=== PATIENT | male | born 1980 | race Hispanic/Latino ===

== ENCOUNTER 2017-01-25 20:03 | Emergency (ER) | payer SELFPAY ==
[2017-01-25] MEDS ORDERED: Ketorolac Tromethamine 30 MG/ML VIAL ONE (22:18)
[2017-01-25] MEDS ORDERED: HYDROcodone/Acetaminophen 10/325 mg Tablet ONE (22:18)
[2017-01-25 22:19] LABS: #Lymphocytes 1.8 thou/uL (1.20-3.40); #Monocytes 0.3 thou/uL (0.11-0.59); #Neutrophils 4.5 thou/uL (1.40-6.50); %Basophils 0.4 % (0.0-1.0); %Eosinophils 0.7 % (0.0-10.0); %Lymphocytes 26.9 % (21.0-51.0); %Monocytes 4.6 % (0.0-10.0); Hematocrit 42.6 % (42.0-52.0); Mean Platelet Volume 6.4 fL (7.4-10.4); Red Blood Cell (RBC) Count 4.67 mill/uL (4.70-6.10); White Blood Cell (WBC) Count 6.6 thou/uL (4.8-10.8)
[2017-01-25 22:40] LABS: ALT (SGPT) 17 U/L (8-55); AST (SGOT) 22 U/L (5-34); Alkaline Phosphatase 62 U/L (40-150); Anion Gap 14 mmol/L (10-20); BUN (Urea Nitrogen) 14 mg/dL (8.9-20.6); Bilirubin, Total 0.6 mg/dL (0.2-1.2); Calc. Creatinine Clearance 0 mL/min (70-130); Calcium 9.7 mg/dL (7.8-10.44); Carbon Dioxide 22 mmol/L (22-29); Chloride 105 mmol/L (98-107); Estimated GFR-MDRD Greater than 90; Globulin 3.2 g/dL (2.4-3.5); Lipase 44 U/L (8-78); Protein, Total 7.7 g/dL (6.0-8.3)
[2017-01-25 22:44] LABS: Troponin I Less than 0.010 ng/mL (< 0.028)
--- NOTE | 2017-01-25 23:04 | RAD ---
AP CHEST: Indication: Headache, chest pain. Comparison: None. FINDINGS: The lungs are clear. Cardiomediastinal silhouette is normal. No acute osseous abnormality is evident . IMPRESSION: No acute cardiopulmonary abnormality. POS: [facility]
--- NOTE | 2017-01-25 23:10 | CT ---
CT BRAIN WITHOUT CONTRAST: Indication: Headache. Comparison: None. FINDINGS: No acute infarct, hemorrhage or hydrocephalus is present. Septum pellucidum and third ventricle are midline. Skull and extracranial soft tissues appear within normal limits. IMPRESSION: No acute intracranial abnormality. POS: [facility]
== END 2017-01-25 23:26 | disposition home or self-care (01) ==
LOC: ERS 20:03
DX: R07.89 Other chest pain (principal); R51 Headache; F41.9 Anxiety disorder, unspecified; F32.9 Major depressive disorder, single episode, unspecified
CPT/HCPCS: 36415; 70450; 71010; 80053; 82553; 83690; 84484; 85025; 93005; 96372; J1885

== ENCOUNTER 2017-10-09 09:50 | Emergency (ER) | payer OTHER, SELFPAY ==
[2017-10-09] MEDS ORDERED: Pantoprazole 40 MG VIAL ONE (10:32)
[2017-10-09 10:42] LABS: #Lymphocytes 2.2 thou/uL (1.20-3.40); #Monocytes 0.3 thou/uL (0.11-0.59); #Neutrophils 6.5 thou/uL (1.40-6.50); %Basophils 0.2 % (0.0-1.0); %Eosinophils 0.2 % (0.0-10.0); %Lymphocytes 24.1 % (21.0-51.0); %Monocytes 3.2 % (0.0-10.0); %Neutrophils 72.3 % (42.0-75.0); Hemoglobin 15.8 g/dL (14.0-18.0); Mean Corpuscular HGB CONC 36.1 g/dL (32.0-36.0); Mean Corpuscular Hemoglobin 32.3 pg (27.0-31.0); Mean Corpuscular Volume 89.5 fl (80.0-94.0); Mean Platelet Volume 5.9 fL (7.4-10.4); Platelet Count 203 thou/uL (130-400); RBC Distribution Width 12.3 % (11.5-14.5)
[2017-10-09 10:48] LABS: ALT (SGPT) 21 U/L (8-55); AST (SGOT) 21 U/L (5-34); Albumin 4.6 g/dL (3.5-5.0); Alkaline Phosphatase 66 U/L (40-150); Anion Gap 16 mmol/L (10-20); BUN (Urea Nitrogen) 11 mg/dL (8.9-20.6); Bilirubin, Total 0.9 mg/dL (0.2-1.2); CK (CPK) 111 U/L (30-200); Calc. Creatinine Clearance 0 mL/min (70-130); Calcium 9.4 mg/dL (7.8-10.44); Carbon Dioxide 22 mmol/L (22-29); Chloride 103 mmol/L (98-107); Estimated GFR-MDRD Greater than 90; Globulin 3.3 g/dL (2.4-3.5); Glucose 75 mg/dL (70-105); Lipase 20 U/L (8-78); Potassium 3.9 mmol/L (3.5-5.1); Protein, Total 7.9 g/dL (6.0-8.3); Sodium 137 mmol/L (136-145)
[2017-10-09 10:50] LABS: CKMB 1.1 ng/mL (0-6.6); Troponin I Less than 0.010 ng/mL (< 0.028)
--- NOTE | 2017-10-09 10:51 | RAD ---
CHEST 1 VIEW: HISTORY: Palpitations. Chest pain. COMPARISON: 01/25/17. FINDINGS: Cardiac silhouette and pulmonary vasculature are unremarkable. Mediastinum midline. No lobar consol idation or pneumothorax are apparent. IMPRESSION: No active cardiopulmonary abnormalities are demonstrated. POS: [facility]
[2017-10-09] MEDS ORDERED: Lidocaine Viscous Sol 2% 15 ml UD Cup ONE (10:57)
[2017-10-09] MEDS ORDERED: Mag-Al 1200 mg/1200 mg/30 ML UDCUP ONE (10:57)
== END 2017-10-09 12:19 | disposition home or self-care (01) ==
LOC: ERS 09:50
DX: F10.10 Alcohol abuse, uncomplicated (principal); F41.9 Anxiety disorder, unspecified; F32.9 Major depressive disorder, single episode, unspecified
CPT/HCPCS: 71045; 80053; 82553; 83690; 84484; 85025; 93005; 96361; 96374; C9113